=== PATIENT | female | born 1980 | race Caucasian/White ===

== ENCOUNTER 2016-07-14 14:12 | Emergency (ER) | payer OTHER ==
[~2016-07-14] VITALS: Ht 160 cm; Wt 140.6 kg
[2016-07-14 17:45] LABS: microscopic required? YES; urine erythrocyte 3+ (NEGATIVE)
[2016-07-14 17:53] VITALS: BP 115/70
== END 2016-07-14 17:53 | disposition home or self-care (01) ==
LOC: ED 14:12
PROVIDERS: Specialist
DX: G89.29 Other chronic pain (principal); M54.5 Low back pain; N94.6 Dysmenorrhea, unspecified; M25.562 Pain in left knee; Z98.890 Other specified postprocedural states

== ENCOUNTER 2016-11-12 07:59 | Emergency (ER) | payer OTHER ==
[2016-11-12 09:24] VITALS: BP 164/88
== END 2016-11-12 09:24 | disposition home or self-care (01) ==
LOC: ED 07:59
DX: S39.012A Strain of muscle, fascia and tendon of lower back, initial encounter (principal); Z86.79 Personal history of other diseases of the circulatory system; V49.9XXA Car occupant (driver) (passenger) injured in unspecified traffic accident, initial encounter; Y93.89 Activity, other specified; Y99.8 Other external cause status; Y92.89 Other specified places as the place of occurrence of the external cause

== ENCOUNTER 2016-11-29 09:52 | Emergency (ER) | payer OTHER ==
[2016-11-29 11:03] LABS: UA SPECIFIC GRAVITY 1.025 (1.005-1.035); microscopic required? YES; urine erythrocyte 3+ (NEGATIVE)
[2016-11-29 11:40] VITALS: BP 144/91
== END 2016-11-29 11:40 | disposition home or self-care (01) ==
LOC: ED 09:52
PROVIDERS: Emergency Medicine
DX: N94.6 Dysmenorrhea, unspecified (principal); R05 Cough; I21.3 ST elevation (STEMI) myocardial infarction of unspecified site; Z79.1 Long term (current) use of non-steroidal anti-inflammatories (NSAID); Z98.890 Other specified postprocedural states

== ENCOUNTER 2016-12-20 07:01 | Emergency (ER) | payer OTHER ==
[2016-12-20 10:04] LABS: microscopic required? YES
[2016-12-20 10:05] LABS: UA SPECIFIC GRAVITY 1.025 (1.005-1.035); urine erythrocyte 1+ (NEGATIVE)
[2016-12-20 10:58] VITALS: BP 133/68
== END 2016-12-20 10:58 | disposition home or self-care (01) ==
LOC: ED 07:01
PROVIDERS: Emergency Medicine
DX: N39.0 Urinary tract infection, site not specified (principal); R11.2 Nausea with vomiting, unspecified; J06.9 Acute upper respiratory infection, unspecified; G89.29 Other chronic pain; M25.569 Pain in unspecified knee; I25.2 Old myocardial infarction
CPT/HCPCS: J1885; J2405; J7030

== ENCOUNTER 2016-12-26 12:18 | Emergency (ER) | payer OTHER ==
[~2016-12-26] VITALS: Ht 160 cm; Wt 141.5 kg
[2016-12-26 12:21] VITALS: BP 136/77
[2016-12-26 13:57] LABS: BASOPHIL % 0.4 % (0-2); PLATELET COUNT 365 x10^3mcL (130-400); RED CELL DISTRIBUTION WIDTH 13.8 % (11.5-14.5)
== END 2016-12-26 14:39 | disposition home or self-care (01) ==
LOC: ED 12:18
PROVIDERS: Emergency Medicine
DX: N93.8 Other specified abnormal uterine and vaginal bleeding (principal); G89.29 Other chronic pain; M25.569 Pain in unspecified knee; I25.2 Old myocardial infarction; Z86.79 Personal history of other diseases of the circulatory system; Z98.890 Other specified postprocedural states
CPT/HCPCS: 36415

== ENCOUNTER 2017-01-02 13:31 | Emergency (ER) | payer OTHER ==
[2017-01-02 13:42] VITALS: BP 127/79
== END 2017-01-02 17:22 | disposition home or self-care (01) ==
LOC: ED 13:31
DX: M54.5 Low back pain (principal); G89.29 Other chronic pain; M25.569 Pain in unspecified knee; I25.2 Old myocardial infarction; Z86.79 Personal history of other diseases of the circulatory system; V89.2XXA Person injured in unspecified motor-vehicle accident, traffic, initial encounter; Y93.89 Activity, other specified; Y99.8 Other external cause status; Y92.89 Other specified places as the place of occurrence of the external cause
CPT/HCPCS: J1885

== ENCOUNTER 2017-03-21 14:34 | Emergency (ER) | payer OTHER ==
[~2017-03-21] VITALS: Ht 160 cm; Wt 137.2 kg
[2017-03-21 14:38] VITALS: BP 146/77
== END 2017-03-21 16:15 | disposition home or self-care (01) ==
LOC: ED 14:34
DX: M79.602 Pain in left arm (principal); M62.830 Muscle spasm of back

== ENCOUNTER 2018-02-14 16:29 | Emergency (ER) | payer OTHER ==
[~2018-02-14] VITALS: Ht 160 cm; Wt 131.1 kg
[2018-02-14 16:49] VITALS: Ht 160 cm; Wt 131.1 kg
[2018-02-14 17:37] VITALS: BP 159/80
== END 2018-02-14 17:37 | disposition home or self-care (01) ==
LOC: ED 16:29
DX: G89.29 Other chronic pain (principal); M54.5 Low back pain; I21.9 Acute myocardial infarction, unspecified; N88.8 Other specified noninflammatory disorders of cervix uteri; Z98.890 Other specified postprocedural states
CPT/HCPCS: J1885